=== PATIENT | female | born 1970 | race Caucasian/White ===

== ENCOUNTER → 2024-01-20 06:17 | Day surgery (SDC) | payer OTHER, SELFPAY | LOC: GI 06:17 | PROVIDERS: ATTENDING PHYSICIAN Surgery | DX: Z12.11 Encounter for screening for malignant neoplasm of colon (principal); Z83.719 Family history of colon polyps, unspecified; D12.2 Benign neoplasm of ascending colon | CPT/HCPCS: 45380; 88305 ==

== ENCOUNTER 2024-07-12 06:31 | Day surgery (SDC) | payer OTHER, SELFPAY ==
[2024-07-12 12:47] VITALS: BMI 26.8
[2024-07-12 12:48] VITALS: BMI 26.8
[2024-07-12 12:49] VITALS: BP 103/62
[2024-07-12 15:51] VITALS: BP 104/82
[2024-07-12 16:00] VITALS: BP 121/74
[2024-07-12 16:15] VITALS: BP 111/74
== END 2024-07-12 16:30 | disposition home or self-care (01) ==
LOC: SDS 06:31
PROVIDERS: ATTENDING PHYSICIAN Internal Medicine Gastroenterology
DX: D12.2 Benign neoplasm of ascending colon (principal); K64.0 First degree hemorrhoids
CPT/HCPCS: 45390; 45385; 88305